=== PATIENT | female | born 1970 | race Caucasian/White ===

== ENCOUNTER → 2025-06-26 | Outpatient (CLI) | payer SELFPAY ==
[2025-06-26 16:08] LABS: Mucous, Urine 0 SEEN /hpf (<or=2+)
[2025-06-26 19:08] LABS: Color, Urine Straw (Yellow); Glucose, Dipstick Normal (Normal); Ketone-Dipstick Negative (Negative); Leukocyte Esterase-Dipstick 500 /ul (Negative); Nitrite-Dipstick Negative (Negative); Occult Blood-Urine 25 /ul (Negative); Protein-Dipstick Negative (Negative); Specific Gravity, Urine 1.015 (1.002-1.030); Urine Bilirubin Dipstick Negative (Negative)
[2025-06-26 19:34] LABS: Red Blood Cells-Urine 5-10 SEEN /hpf (0-5)
[2025-06-26 19:35] LABS: Squamous Epithelial Cells - UA 5-10 SEEN /hpf (5-10); Transitional Epithelial - Ur 0-5 SEEN /hpf (0-5)
== END | disposition home or self-care (01) ==
LOC: LABSPEC 16:05
DX: N39.0 Urinary tract infection, site not specified (principal); R10.A1 Flank pain, right side
CPT/HCPCS: 81001; 87077; 87086; 87088; 87186

== ENCOUNTER → 2025-07-10 | Outpatient (CLI) | payer SELFPAY ==
[2025-07-10 17:08] LABS: Hematocrit 43.9 % (37-47); Hemoglobin 14.8 g/dL (12.0-15.0); Immature Granulocytes Count 0.050 X10^3/uL (0.0-0.0); Mean Corp Hgb Conc 33.7 g/dL (32-36); Mean Corpuscular Volume 92.6 fL (81-99); Mean Platelet Vol. 10.0 fl (6.2-12.0); NRBC Flagged by Analyzer 0 % (0-5); Platelet Count 375 K/mm3 (150-450); RBC Distribution Width CV 11.5 % (11.6-14.6); RBC Distribution Width SD 39.0 fl (35.1-43.9); Red Blood Count 4.74 M/mm3 (4.2-5.4); White Blood Count 11.9 K/mm3 (4.4-11.0)
[2025-07-10 17:28] LABS: Microalbumin,Random Urine 40.7 mg/L (<20 mg/L)
[2025-07-10 17:48] LABS: AST(SGOT) 28 U/L (<=31); Alanine Aminotransfer ALT/SGPT 36 U/L (<=34); Albumin, Serum 4.7 g/dL (3.5-5.0); Alkaline Phosphatase 90 U/L (35-104); Anion Gap 14 (5-15); BUN 13 mg/dL (4-19); BUN/Creat Ratio 15.6 RATIO (10-20); Calcium,Total 10.4 mg/dL (7.6-11.0); Carbon Dioxide 23.5 mmol/L (21.0-32.0); Chloride 101 mmol/L (98-108); Cholesterol 247 mg/dL (<=200); Globulin 3.2 g/dL (2.2-4.2); Glucose 89 mg/dL (70-99); Low Density Lipoprotein Calc. 128 mg/dL; Potassium 4.2 mmol/L (3.3-5.1); Triglycerides 430 mg/dL; Very Low Density Lipoprotein 86 mg/dL (5-40); Vitamin B12 500 pg/mL (180-914); Vitamin D,25 Hydroxy 21.8 ng/mL (30-100); cholesterol:hdl ratio screen 5.97
== END | disposition home or self-care (01) ==
LOC: VSLAB 14:46
DX: I10 Essential (primary) hypertension (principal); E56.9 Vitamin deficiency, unspecified; Z13.220 Encounter for screening for lipoid disorders; Z13.1 Encounter for screening for diabetes mellitus
CPT/HCPCS: 36415; 80053; 80061; 82043; 82306; 82607; 83036; 84443; 85025